=== PATIENT | male | born 1955 | race Caucasian/White ===

== ENCOUNTER 2019-06-26 11:18 | Day surgery (SDC) | payer BC ==
[~2019-06-26] VITALS: Ht 165.1 cm; Wt 81.5 kg
[~2019-06-26 11:18] MED LIST: LISI20 PO; Lipitor20 MG PO; NAPR500 PO; OMEPRAZOLE20 MG PO; OXYACE5T PO; ROSU5 PO; ZESTORETIC 20-251 EA PO
== END 2019-06-26 13:25 | disposition home or self-care (01) ==
LOC: ORSCSDS 11:18
PROVIDERS: Internal Medicine Gastroenterology
PROC: 0DJD8ZZ Inspection of Lower Intestinal Tract, Via Natural or Artificial Opening Endoscopic (ICD-10-PCS; principal; 2019-06-26 13:00)
DX: Z12.11 Encounter for screening for malignant neoplasm of colon (principal); K57.30 Diverticulosis of large intestine without perforation or abscess without bleeding; Z80.0 Family history of malignant neoplasm of digestive organs; E66.9 Obesity, unspecified; Z68.30 Body mass index [BMI] 30.0-30.9, adult; K21.9 Gastro-esophageal reflux disease without esophagitis; I10 Essential (primary) hypertension; Z79.899 Other long term (current) drug therapy
CPT/HCPCS: J2704; J7120

== ENCOUNTER 2024-09-11 12:46 | Day surgery (SDC) | payer OTHER ==
[~2024-09-11] VITALS: Ht 165.1 cm; Wt 83.3 kg
[~2024-09-11 12:46] MED LIST changes: +Lactated Ringer's 1,000 ML IV ONE; +propofoL 50 ML IV ONE
[2024-09-11] MEDS ORDERED: Lactated Ringer's 1,000 ML IV ONE (13:36)
[2024-09-11 15:01] VITALS: BP 129/74
== END 2024-09-11 14:59 | disposition home or self-care (01) ==
LOC: ORSCSDS 12:46
PROVIDERS: Internal Medicine Gastroenterology
PROC: 0DBL8ZX Excision of Transverse Colon, Via Natural or Artificial Opening Endoscopic, Diagnostic (ICD-10-PCS; principal; 2024-09-11 14:15)
PROC: 0DBK8ZX Excision of Ascending Colon, Via Natural or Artificial Opening Endoscopic, Diagnostic (ICD-10-PCS; principal; 2024-09-11 14:15)
DX: Z12.11 Encounter for screening for malignant neoplasm of colon (principal); D12.2 Benign neoplasm of ascending colon; D12.3 Benign neoplasm of transverse colon; Z80.0 Family history of malignant neoplasm of digestive organs
CPT/HCPCS: 88305; J2704; J7120